=== PATIENT | female | born 1970 | race Caucasian/White ===

== ENCOUNTER 2017-06-27 16:18 | Emergency (ER) | payer OTHER ==
[2017-06-27 16:31] VITALS: BP 114/74
--- NOTE | 2017-06-27 17:18 | UC ---
Neck Pain HPI - HPI Summary HPI Summary: 3 DAYS OF LEFT SIDED NECK PAIN AND ALMEIDA WITH PHOTOPHOBIA, PHONOPHOBIA AND INTERMITTENT NAUSEA. PT HAS H/O HERNIATED DISKS AND HAS FLARES FROM TIME TO TIME WHICH TRIGGER HER MIGRAINES. HAS SOME TINGLING IN HER LEFT ARM WHICH SHE SAYS IS NOT UNCOMMON WHEN SHE HAS PAIN FLARES. DENIES NECK STIFFNESS. THINKS SHE JUST TWEAKED IT. OTC NSAIDS/TYLENOL NOT HELPING. - History of Current Complaint Chief Complaint: UCHeadache Stated Complaint: NECK PAIN Time Seen by Provider: 06/27/17 16:29 Hx Obtained From: Patient, Family/Advertising Dispatch Clerk - Onset/Duration Of Injury/Symptoms: Days Mechanism Of Injury: No Known Trauma Timing: Constant Onset/Duration: Gradual Onset, Lasting Days, Still Present Severity: Severe Pain Intensity: 10 Pain Scale Used: 0-10 Numeric Location: Discrete At: - LEFT NECK/TRAP Character: Sharp Aggravating Factors: Nothing Alleviating Factors: Nothing Associated Signs & Symptoms: Positive: Headache, Paresthesia. Negative: Nuchal Rigity - Allergies/Home Medications Allergies/Adverse Reactions: Allergies Allergy/AdvReac Type Severity Reaction Status Date / Time No Known Allergies Allergy Verified 06/27/17 16:31 Home Medications: Home Medications Sertraline* [Zoloft*] 50 mg PO DAILY 06/27/17 [History Confirmed 06/27/17] PMH/Surg Hx/FS Hx/Imm Hx Neurological History: Migraine - Surgical History Surgical History: None - Family History Known Family History: Negative: Hypertension - Social History Alcohol Use: Occasionally Substance Use Type: None Smoking Status (MU): Never Smoked Tobacco - Immunization History Most Recent Influenza Vaccination: 2013 Most Recent Tetanus Shot: <5yrs Most Recent Pneumonia Vaccination: never Review Of Systems Constitutional: Positive: Negative Skin: Positive: Negative Respiratory: Positive: Negative Cardiovascular: Positive: Negative Gastrointestinal: Positive: Nausea Musculoskeletal: Positive: Myalgia Neurological: Positive: Headache All Other Systems Reviewed And Are Negative: Yes Physical Exam Triage Information Reviewed: Yes Appearance: Well-Nourished, Pain Distress - MODERATE Vital Signs: Initial Vital Signs Temp 98.0 F 06/27/17 16:24 Pulse 67 06/27/17 16:24 Resp 16 06/27/17 16:24 BP 114/74 06/27/17 16:24 Pulse Ox 100 06/27/17 16:24 Vital Signs Reviewed: Yes Eyes: Positive: Conjunctiva Clear ENT: Positive: Hearing grossly normal Neck: Positive: Supple, Nontender, No Lymphadenopathy, Tenderness @ - LEFT TRAPEZIUS, Other: - NO SIGNS OF MENINGISMUS. Negative: Nuchal Rigidity Respiratory: Positive: No respiratory distress, No accessory muscle use Cardiovascular: Positive: Pulses Normal Abdomen Description: Positive: Soft Musculoskeletal: Positive: No Edema Neurological: Positive: Alert, Other: - 5/5 STRENGTH, CN II-XII GROSSLY INTACY BILATERALLY Psychological: Positive: Age Appropriate Behavior Skin: Negative: rashes Neck Pain Course/Dx - Differential Dx/Diagnosis Provider Diagnoses: CERVICAL RADICULOPATHY/NECK PAIN Discharge - Discharge Plan Condition: Stable Disposition: HOME Prescriptions: Cyclobenzaprine TAB* [Flexeril TAB*] 10 mg PO BID PRN #30 tab PRN Reason: Pain HYDROcodone/ACETAMIN 5-325 MG* [[place] 5-325 TAB*] 1 tab PO Q6H PRN #15 tab MDD 4 PRN Reason: Pain Naproxen [Naproxen EC] 500 mg PO BID PRN #30 tab PRN Reason: Pain Patient Education Materials: Muscle Strain (ED), Cervical Radiculopathy (ED), Neck Pain (ED) Referrals: Keke Reyna NP [Primary Care Provider] - If Needed Additional Instructions: GO TO THE ER WITHOUT FAIL IF YOU DEVELOP WORSENING PAIN, NECK STIFFNESS, ARM NUMBNESS OR ANY OTHER CONCERNING SYMPTOMS. BE AWARE THAT COADMINISTRATION OF FLEXERIL AND SSRI CAN INCREASE YOUR RISK OF SEROTONIN SYNDROME. IF YOU DEVELOP AGITATION, CONFUSION, SWEATS, TREMOR, MUSCLE STIFFNESS GO DIRECTLY TO THE ER.
== END 2017-06-27 17:13 | disposition home or self-care (01) ==
LOC: UCEAST 16:18
DX: M54.12 Radiculopathy, cervical region (principal); M54.2 Cervicalgia; H53.149 Visual discomfort, unspecified; R51 Headache
CPT/HCPCS: 99212; G0463